=== PATIENT | male | born 1975 | race Caucasian/White ===

== ENCOUNTER 2019-12-21 21:30 | Emergency (ER) | payer SELFPAY ==
[2019-12-21] MEDS ORDERED: CEFTRIAXONE/SWI 1gm 1 GM/10 ML SYR ONE (22:42)
[2019-12-21] MEDS ORDERED: NA CHLORIDE 0.9% 500 ML ONE (22:42)
[2019-12-21] MEDS ORDERED: AZITHROMYCIN 500 MG INJ IVPB ONE (22:42)
[2019-12-21] MEDS ORDERED: NA CHLORIDE 0.9% 1,000 ML ONE (22:42)
[2019-12-21 23:25] LABS: Absolute Lymphocytes (CBC) 1.2 K/uL (0.7-4.9); Basophils % 0.2 % (0-1.3); Hematocrit 47.2 % (39.6-49.0); Lymphocytes % 17.6 % (15.3-44.8); MPV 9.6 fL (7.6-11.3); RBC Red Blood Cell Count 4.95 M/uL (4.33-5.43)
[2019-12-21 23:30] LABS: Albumin 4.4 g/dL (3.4-5.0); Bilirubin Total 0.5 mg/dL (0.2-1.0); Potassium 3.4 mmol/L (3.5-5.1)
--- NOTE | 2019-12-21 23:40 | EDPHYS ---
Physician Documentation [facility] Name: Dani Dubon Age: 44 yrs Sex: Male : 1975 Arrival Date: 12/21/2019 Time: 21:30 Bed 16 Private MD: ED Physician Fransisco Banegas HPI: 12/20 21:59 This 44 yrs old Male presents to ER via Ambulatory with complaints of Fever, steven Shortness Of Breath. 21:59 The patient reports fever, that was measured at 100 degrees Fahrenheit. Onset: The steven symptoms/episode began/occurred 4 day(s) ago. Modifying factors: there are no obvious modifying factors. Associated signs and symptoms: Pertinent positives: chills, cough. Severity of symptoms: At their worst the symptoms were mild moderate in the emergency department the symptoms are worse mildly. The patient has not experienced similar symptoms in the past. Historical: - Allergies: 21:37 No Known Allergies; ll1 - PMHx: 21:37 Diabetes - IDDM; ll1 - PSHx: 21:37 None; ll1 - Immunization history:: Flu vaccine is not up to date. - Social history:: Smoking status: Patient denies any tobacco usage or history of. Patient/guardian denies using alcohol, street drugs, tobacco products. ROS: 22:01 Eyes: Negative for injury, pain, redness, and discharge, ENT: Negative for injury, steven pain, and discharge, Neck: Negative for injury, pain, and swelling, Cardiovascular: Negative for chest pain, palpitations, and edema, Abdomen/GI: Negative for abdominal pain, nausea, vomiting, diarrhea, and constipation, Back: Negative for injury and pain, : Negative for injury, bleeding, discharge, and swelling, MS/Extremity: Negative for injury and deformity, Skin: Negative for injury, rash, and discoloration, Neuro: Negative for headache, weakness, numbness, tingling, and seizure, Psych: Negative for depression, anxiety, suicide ideation, homicidal ideation, and hallucinations, Allergy/Immunology: Negative for hives, rash, and allergies, Endocrine: Negative for neck swelling, polydipsia, polyuria, polyphagia, and marked weight changes, Hematologic/Lymphatic: Negative for swollen nodes, abnormal bleeding, and unusual bruising. 22:01 Constitutional: Positive for body aches, chills, fever, malaise. 22:01 Cardiovascular: Positive for palpitations. 22:01 Respiratory: Positive for cough, shortness of breath, at rest. Exam: 22:01 Constitutional: This is a well developed, well nourished patient who is awake, alert, steven and in no acute distress. Head/Face: Normocephalic, atraumatic. Eyes: Pupils equal round and reactive to light, extra-ocular motions intact. Lids and lashes normal. Conjunctiva and sclera are non-icteric and not injected. Cornea within normal limits. Periorbital areas with no swelling, redness, or edema. ENT: Nares patent. No nasal discharge, no septal abnormalities noted. Tympanic membranes are normal and external auditory canals are clear. Oropharynx with no redness, swelling, or masses, exudates, or evidence of obstruction, uvula midline. Mucous membranes moist. Neck: Trachea midline, no thyromegaly or masses palpated, and no cervical lymphadenopathy. Supple, full range of motion without nuchal rigidity, or vertebral point tenderness. No Meningismus. Chest/axilla: Normal chest wall appearance and motion. Nontender with no deformity. No lesions are appreciated. Abdomen/GI: Soft, non-tender, with normal bowel sounds. No distension or tympany. No guarding or rebound. No evidence of tenderness throughout. Back: No spinal tenderness. No costovertebral tenderness. Full range of motion. Male : Normal genitalia with no discharge or lesions. Skin: Warm, dry with normal turgor. Normal color with no rashes, no lesions, and no evidence of cellulitis. MS/ Extremity: Pulses equal, no cyanosis. Neurovascular intact. Full, normal range of motion. Neuro: Awake and alert, GCS 15, oriented to person, place, time, and situation. Cranial nerves II-XII grossly intact. Motor strength 5/5 in all extremities. Sensory grossly intact. Cerebellar exam normal. Normal gait. Psych: Awake, alert, with orientation to person, place and time. Behavior, mood, and affect are within normal limits. 22:01 Cardiovascular: Rate: tachycardic, Rhythm: regular, Pulses: Pulses are 4+ in bilateral radial, brachial, femoral, popliteal, posterior tibial and and dorsalis pedis arteries.. Heart sounds: normal, normal S1and S2, no S3 or S4, no murmur, no rub, no gallop, Edema: is not appreciated, JVD: is not appreciated. 22:01 Abdomen/GI: Exam negative for acute changes, Inspection: abdomen appears normal, Bowel sounds: normal, Liver: no appreciated palpable abnormalities, Hernia: not appreciated. 22:04 Musculoskeletal/extremity: DVT Exam: No signs of deep vein thrombosis. no pain, no steven swelling, no tenderness, negative Homans' sign noted on exam, no appreciated bluish discoloration, no erythema, no increased warmth. Vital Signs: 21:34 BP 125 / 100; Pulse 116; Resp 18; Temp 98.5; Pulse Ox 96% ; Pain 4/10; ll1 23:12 BP 139 / 89; Pulse 89; Resp 18; Pulse Ox 98% ; ll1 23:56 BP 130 / 80; Pulse 85; Resp 18; Pulse Ox 100% ; ll1 MDM: 21:41 Patient medically screened. [facility] 22:02 Data reviewed: vital signs, nurses notes, lab test result(s), EKG, radiologic studies, [facility] CT scan, plain films. 22:03 Antibiotic administration: The patient is discharged and will get outpatient [facility] antibiotics, Zithromax. Differential diagnosis: Anxiety Reaction asthma, Bronchitis viral Infection, bacterial infection, URI, bronchitis, pneumonia UTI. The patient's Wells Deep Vein Thrombosis Score was calculated as follows: Heart Rate >100 BPM (1.5 Pts) Total Score: 0-2 Pts- Low Risk. The patient's pulmonary embolism risk score was calculated as follows: the patients heart rate is greater than 100 beats per minute (1.5 Pts) Total Score: 0-2 points. This patient was found to be at low risk for a pulmonary embolism by using the Well's assessment criteria. Immunization status:. Data interpreted: environmental monitoring technician: rate is 116 beats/min, rhythm is normal sinus rhythm. Test interpretation: by ED physician or midlevel provider: plain radiologic studies. 23:42 ED course: left lower lobe pna, abx given , follow up ,return if worse, follow up dr steven montez. 12/20 21:59 Order name: CBC with Diff; Complete Time: 23:38 [facility] 12/20 21:59 Order name: Comprehensive Metabolic Panel; Complete Time: 23:38 [facility] 12/20 21:59 Order name: Blood Culture Adult (2) [facility] 12/20 21:59 Order name: Chest Single View XRAY [facility] 12/20 23:43 Order name: INCENTIVE SPIROMETRY [facility] 12/20 23:39 Order name: PO challenge: juice; Complete Time: 23:55 [facility] Administered Medications: 22:51 Drug: NS 0.9% 1000 ml Route: IV; Rate: 1 bolus; Site: left antecubital; [facility] 23:50 Follow up: Response: No adverse reaction; RASS: Alert and Calm (0); IV Status: ll1 Completed infusion; IV Intake: 1000ml 22:51 Drug: Rocephin 1 grams Route: IV; Rate: per protocol; Site: left antecubital; 1 23:00 Follow up: IV Status: Completed infusion; IV Intake: 20ml [facility] 23:12 Drug: Zithromax 500 mg Route: IVPB; Infused Over: 1 hrs; Site: left antecubital; [facility] Disposition: 12/21/19 23:39 Discharged to Home. Impression: Dyspnea, Fever, unspecified, Type 1 diabetes mellitus, Acute upper respiratory infection, unspecified, Hypokalemia, Pneumonia due to other specified bacteria - left lower lobe. - Condition is Stable. - Discharge Instructions: Type 1 Diabetes Mellitus, Diagnosis, Adult, Potassium Content of Foods, Shortness of Breath, Upper Respiratory Infection, Adult, Cool Mist Vaporizer, Shortness of Breath, [id number], Cough, Adult, Hypokalemia, Type 1 Diabetes Mellitus, Self Care, Adult, Type 1 Diabetes Mellitus, Diagnosis, Adult, [id number], Type 1 Diabetes Mellitus, Self Care, Adult, [id number]. - Prescriptions for Albuterol Sulfate 90 mcg/actuation - inhale 1-2 puff by INHALATION route every 4-6 hours; 1 Inhaler. Zithromax 500 mg Oral Tablet - take 1 tablet by ORAL route once daily for 5 days; 5 tablet. - Medication Reconciliation Form, Thank You Letter, Antibiotic Education, Prescription Opioid Use form. - Follow up: Private Physician; When: 2 - 3 days; Reason: Recheck today's complaints, Continuance of care, Re-evaluation by your physician. Follow up: Heber Huertas; When: 2 - 3 days; Reason: Recheck today's complaints, Re-evaluation by your physician. - Problem is new. - Symptoms have improved. Signatures: Dispatcher [employer] EDIL Fransisco Banegas MD MD cha Umadhay, Felix, RN Patricia Costello RN RN ll1 Corrections: (The following items were deleted from the chart) 23:41 23:39 12/21/2019 23:39 Discharged to Home. Impression: Dyspnea; Fever, unspecified; steven Type 1 diabetes mellitus; Acute upper respiratory infection, unspecified; Hypokalemia. Condition is Stable. Discharge Instructions: Type 1 Diabetes Mellitus, Diagnosis, Adult, Shortness of Breath, Upper Respiratory Infection, Adult, Cool Mist Vaporizer, Shortness of Breath, [id number], Cough, Adult, Type 1 Diabetes Mellitus, Self Care, Adult, Type 1 Diabetes Mellitus, Diagnosis, Adult, Suya-xe-Dzac, Type 1 Diabetes Mellitus, Self Care, Adult, [id number]. Prescriptions for Albuterol Sulfate 90 mcg/actuation - inhale 1-2 puff by INHALATION route every 4-6 hours; 1 Inhaler, Zithromax 500 mg Oral Tablet - take 1 tablet by ORAL route once daily for 4 days; 4 tablet. and Forms are Medication Reconciliation Form, Thank You Letter, Antibiotic Education, Prescription Opioid Use. Follow up: Private Physician; When: 2 - 3 days; Reason: Recheck today's complaints, Continuance of care, Re-evaluation by your physician. Follow up: Heber Huertas; When: 2 - 3 days; Reason: Recheck today's complaints, Re-evaluation by your physician. Problem is new. Symptoms have improved. [facility] 12/21 00:55 12/20 23:41 12/21/2019 23:39 Discharged to Home. Impression: Dyspnea; Fever, fu unspecified; Type 1 diabetes mellitus; Acute upper respiratory infection, unspecified; Hypokalemia; Pneumonia due to other specified bacteria - left lower lobe. Condition is Stable. Discharge Instructions: Type 1 Diabetes Mellitus, Diagnosis, Adult, Shortness of Breath, Upper Respiratory Infection, Adult, Cool Mist Vaporizer, Shortness of Breath, [id number], Cough, Adult, Type 1 Diabetes Mellitus, Self Care, Adult, Type 1 Diabetes Mellitus, Diagnosis, Adult, Zrhe-ff-[id number], Type 1 Diabetes Mellitus, Self Care, Adult, Vfol-fr-Wruy, Potassium Content of Foods, Hypokalemia. Prescriptions for Albuterol Sulfate 90 mcg/actuation - inhale 1-2 puff by INHALATION route every 4-6 hours; 1 Inhaler, Zithromax 500 mg Oral Tablet - take 1 tablet by ORAL route once daily for 4 days; 4 tablet. and Forms are Medication Reconciliation Form, Thank You Letter, Antibiotic Education, Prescription Opioid Use. Follow up: Private Physician; When: 2 - 3 days; Reason: Recheck today's complaints, Continuance of care, Re-evaluation by your physician. Follow up: Heber Huertas; When: 2 - 3 days; Reason: Recheck today's complaints, Re-evaluation by your physician. Problem is new. Symptoms have improved. steven
--- NOTE | 2019-12-21 23:40 | ER ---
Nurse's Notes [facility] Name: Dani Dubon Age: 44 yrs Sex: Male : 1975 Arrival Date: 12/21/2019 Time: 21:30 Bed 16 Private MD: Diagnosis: Dyspnea;Fever, unspecified;Type 1 diabetes mellitus;Acute upper respiratory infection, unspecified;Hypokalemia;Pneumonia due to other specified bacteria-left lower lobe Presentation: 12/20 21:34 Chief complaint: Patient states: Fever and SOB continues. States he was seen at [address] Thursday, diagnosed with left lobe pneumonia. Cough and chest pain are getting worse since. Covid result still pending. Coronavirus screen: Surgical mask placed on patient. Patient moved to private room, placed in contact and droplet isolation with eye protection until further assessment. Patient reports a cough. Patient reports shortness of breath or difficulty breathing. Patient reports a measured and/or subjective temperature greater than 100.4F. Patient denies travel on a cruise ship or to a country the [facility] currently lists as an affected area. Patient denies contact with known and/or suspected case of COVID-19. Ebola Screen: Patient denies travel to an Ebola-affected area in the 21 days before illness onset. Initial Sepsis Screen: Does the patient meet any 2 criteria? HR > 90 bpm. Does the patient have a suspected source of infection? Yes: Productive cough/pneumonia. Risk Assessment: Do you want to hurt yourself or someone else? Patient reports no desire to harm self or others. Onset of symptoms was December 17, 2019. 21:34 Method Of Arrival: Ambulatory 1 21:34 Acuity: BRENT 3 ll1 Triage Assessment: 23:14 Respiratory: Onset: The symptoms/episode began/occurred today, the patient has mild ll1 shortness of breath. Historical: - Allergies: 21:37 No Known Allergies; ll1 - PMHx: 21:37 Diabetes - IDDM; ll1 - PSHx: 21:37 None; ll1 - Immunization history:: Flu vaccine is not up to date. - Social history:: Smoking status: Patient denies any tobacco usage or history of. Patient/guardian denies using alcohol, street drugs, tobacco products. Screenin:15 Abuse screen: Denies threats or abuse. Nutritional screening: No deficits noted. ll1 Tuberculosis screening: No symptoms or risk factors identified. Fall Risk None identified. IV access (20 points). Total Das Fall Scale indicates No Risk (0-24 pts). Assessment: 21:45 General: Appears in no apparent distress. Behavior is calm, cooperative, appropriate ll1 for age. Pain: Denies pain. Neuro: No deficits noted. Cardiovascular: No deficits noted. Rhythm is regular. Respiratory: Airway is patent Trachea midline Respiratory effort is even, unlabored, Respiratory pattern is regular, symmetrical, Breath sounds are clear bilaterally. GI: No deficits noted. Musculoskeletal: Reports body aches. 22:45 Reassessment: Patient appears in no apparent distress at this time. No changes from ll1 previously documented assessment. Patient and/or family updated on plan of care and expected duration. Pain level reassessed. Patient is alert, oriented x 3, equal unlabored respirations, skin warm/dry/pink. 23:14 Respiratory: Reports shortness of breath cough that is. ll1 23:45 Reassessment: Patient appears in no apparent distress at this time. No changes from ll1 previously documented assessment. Patient and/or family updated on plan of care and expected duration. Pain level reassessed. Patient is alert, oriented x 3, equal unlabored respirations, skin warm/dry/pink. Vital Signs: 21:34 BP 125 / 100; Pulse 116; Resp 18; Temp 98.5; Pulse Ox 96% ; Pain 4/10; ll1 23:12 BP 139 / 89; Pulse 89; Resp 18; Pulse Ox 98% ; ll1 23:56 BP 130 / 80; Pulse 85; Resp 18; Pulse Ox 100% ; ll1 ED Course: 21:30 Patient arrived in ED. cl3 21:37 Triage completed. ll1 21:38 Arm band placed on Patient placed in an exam room, on a stretcher. ll1 21:41 Fransisco Banegas MD is Attending Physician. steven 22:04 Patricia Bennett RN is Primary Nurse. ll1 22:10 Chest Single View XRAY In Process Unspecified. EDMS 22:10 Inserted saline lock: 20 gauge in left antecubital area, using aseptic technique. Blood jp3 collected. Patient maintains SpO2 saturation greater than 95% on room air. 22:10 Initial lab(s) drawn, by me, sent to lab. First set of blood cultures drawn by me. jp3 22:25 Second set of blood cultures drawn. jp3 23:14 Patient has correct armband on for positive identification. Bed in low position. Call ll1 light in reach. Side rails up X 1. Pulse ox on. NIBP on. 23:39 Heber Huertas MD is Referral Physician. [facility] 23:55 INCENTIVE SPIROMETRY Sent. ll1 Administered Medications: 22:51 Drug: NS 0.9% 1000 ml Route: IV; Rate: 1 bolus; Site: left antecubital; ll1 23:50 Follow up: Response: No adverse reaction; RASS: Alert and Calm (0); IV Status: ll1 Completed infusion; IV Intake: 1000ml 22:51 Drug: Rocephin 1 grams Route: IV; Rate: per protocol; Site: left antecubital; ll1 23:00 Follow up: IV Status: Completed infusion; IV Intake: 20ml ll1 23:12 Drug: Zithromax 500 mg Route: IVPB; Infused Over: 1 hrs; Site: left antecubital; ll1 Intake: 23:00 IV: 20ml; Total: 20ml. ll1 23:50 IV: 1000ml; Total: 1020ml. ll1 Outcome: 23:39 Discharge ordered by . [facility] 12/21 00:55 Patient left the ED. seven Signatures: Dispatcher [employer] Fransisco Medel MD MD cha Umadhay, Felix, RN RN Tian Westfall jp3 Jairo Bennett Lynsay, RN RN 1
[2019-12-22 01:37] VITALS: TEMP 98.5
[2019-12-22 01:40] VITALS: BP 130/80; O2SAT 100
--- NOTE | 2019-12-22 08:47 | RAD REPORT ---
EXAM DESCRIPTION: RAD - Chest Single View - 12/21/2019 10:10 pm CLINICAL HISTORY: Cough;Dyspnea;Fever Chest pain. COMPARISON: No comparisons FINDINGS: Portable technique limits examination quality. Small to moderate infiltrate is present in the left lower lobe compatible with pneumonia. The heart i s normal in size. No displaced fractures. IMPRESSION: Left lower lobe pneumonia.
== END 2019-12-22 00:55 | disposition home or self-care (01) ==
LOC: ER 21:30
DX: J15.8 Pneumonia due to other specified bacteria (principal); E87.6 Hypokalemia; R06.00 Dyspnea, unspecified; E10.9 Type 1 diabetes mellitus without complications
CPT/HCPCS: 36415; 71045; 80053; 85025; 87040; 96361; 96374; 96375; 99284; J0456; J0696; J7030; J7040